=== PATIENT | male | born 1955 | race Caucasian/White ===

== ENCOUNTER → 2016-08-09 | Outpatient (CLI) | payer OTHER ==
--- NOTE | 2016-08-09 13:20 | KCIC ---
PROCEDURE MRI lumbar spine without contrast HISTORY Low back pain, right leg numbness in recent months TECHNIQUE Multiplanar, multi sequential non contrast MR imaging was performed of the lumbar spine. COMPARISON None FINDINGS Lumbar vertebral body stature and AP alignment are adequate. There is nonspecific edema of the posterior subcutaneous fat of the lower back. There is mild to moderate degenerative disc disease at L4-5 and L3-4, to a somewhat lesser degree at L2-3 and L1-2. Trace posterior L3-4 endplate edema is likely reactive/degenerative in etiology. There is mild mid lumbar levoscoliosis. There are hemangiomas of L2, L1, T12 and tiny focus of L5. L1-L2: There is negligible disc osteophyte complex and bulge. Spinal canal and neural foramina are adequate. L2-3: There is mild facet hypertrophic change greater on the right. There is minimal disc osteophyte complex and bulge, greatest in the far right lateral recess. There is mild narrowing of the far right lateral recess. There is minimal right and very minimal left neural foramina compromise. L3-4: There is prominence of posterior epidural fat. There is mild buckling of the ligamentum flavum and facet hypertrophic change. There is shallow disc osteophyte complex and bulge greater in the right lateral recess. Spinal canal is overall adequate. There is mild narrowing of the right neural foramen, left neural foramen adequate. L4-5: There is prominence of posterior epidural fat. There is mild facet hypertrophic change and buckling of the ligamentum flavum. There is minimal disc osteophyte complex and bulge, also shallow protrusion with associated annular tear eccentric to the far right lateral recess. There is overall mild narrowing of the far right lateral recess, apparently light contact of the descending right L5 nerve root. There is other mild attenuation of the thecal sac from posterior epidural lipomatosis. Neural foramina are adequate. L5-S1: Spinal canal is adequate. There is moderate left and mild right facet hypertrophic change. There is mild to moderate narrowing of the left neural foramen, right neural foramen adequate. IMPRESSION 1. There is mild right lateral recess stenosis as described at L2-3 and L4-5, shallow protrusion in the right lateral recess at L4-5 apparently contacting descending right L5 nerve root. 2. There is mild to moderate degenerative disc disease L3-4 and L4-5, to lesser degree at L1-L2 and L2-3. 3. There is mild lumbar levoscoliosis. 4. There is mild to moderate narrowing of the left L5-S1 neural foramen, other minimal narrowing as stated. Electronically signed by: Bobby Mariee MD (Aug 09, 2016 13:18:23)
== END | disposition home or self-care (01) ==
LOC: KCIC MRI 11:31
PROVIDERS: ATTEND Internal Medicine
DX: M51.36 Other intervertebral disc degeneration, lumbar region (principal); R20.0 Anesthesia of skin; M48.07 Spinal stenosis, lumbosacral region
CPT/HCPCS: 72148

== ENCOUNTER 2021-05-16 17:00 | Inpatient (IN) | payer OTHER, MEDICAID ==
[~2021-05-16] VITALS: Ht 193 cm; Wt 111.8 kg
[2021-05-16 18:10] LABS: BASO % 0 % (0-3); EOS % 1 % (0-3); HEMATOCRIT 39.4 % (39.0-53.0); HEMOGLOBIN 12.8 g/dL (13.0-17.5); LYMPH # 1.4 x10^3/uL (1.0-4.8); LYMPH % 21 % (24-48); MEAN CORPUSCULAR HEMOGLOBIN 32 pg (25-35); MEAN CORPUSCULAR HGB CONC 32 g/dL (31-37); MEAN CORPUSCULAR VOLUME 97 fL (79-100); MONO # 0.8 x10^3/uL (0.0-1.1); MONO % 12 % (0-9); NEUT # 4.4 x10^3/uL (1.8-7.7); NEUT % 66 % (31-73); PLATELET COUNT 139 x10^3/uL (140-400); RED BLOOD COUNT 4.05 x10^6/uL (4.30-5.70); RED CELL DISTRIBUTION WIDTH 14.5 % (11.5-14.5); WHITE BLOOD COUNT 6.6 x10^3/uL (4.0-11.0)
[2021-05-16 18:19] LABS: PROTHROMBIN TIME PATIENT 19.1 SEC (11.7-14.0)
[2021-05-16 18:21] LABS: CALCIUM 8.8 mg/dL (8.5-10.1); CREATININE 0.7 mg/dL (0.7-1.3); GFR 112.8; POTASSIUM 4.4 mmol/L (3.5-5.1)
[2021-05-16 18:27] LABS: ALBUMIN 3.4 g/dL (3.4-5.0); ALBUMIN/GLOBULIN RATIO 0.8 (1.0-1.7); TOTAL BILIRUBIN 1.3 mg/dL (0.2-1.0); TOTAL PROTEIN 7.9 g/dL (6.4-8.2)
[2021-05-16 18:38] LABS: CREATINE KINASE 35 U/L (39-308)
--- NOTE | 2021-05-16 19:08 | RAD ---
AP chest. HISTORY: Short of breath AP view was taken of the chest. Heart is enlarged. There is no pleural effusion. There is mild vascul ar congestion. There are no confluent infiltrates. IMPRESSION: 1. Mild cardiac enlargement with vascular congestion. 2. No confluent infiltrates. Electronically signed by: Alexander Mckeon MD (05/16/2021 7:05 PM) [facility]
[2021-05-16] MEDS ORDERED: DIGOXIN IV 500 MCG/2 ML AMPUL. ONE (20:21)
[2021-05-16] MEDS ORDERED: AMIODARONE 450 MG in IV DEXTROSE 5% 250 ML IV ONE (20:45)
[2021-05-16] MEDS ORDERED: AMIODARONE 150 MG/3 ML VIAL IVP ONE (20:45)
[2021-05-16] MEDS ORDERED: DIGOXIN IV 500 MCG/2 ML AMPUL. IV ONE (20:45)
--- NOTE | 2021-05-16 21:13 | PHYS DOC ---
Past Medical History Past Surgical History: Other Additional Past Surgical Histo: RIGHT ELBOW, VERACOSE VEIN REMOVAL General Adult EDM: Chief Complaint: SHORTNESS OF BREATH HPI: HPI: Patient is a 65-year-old male presents to the emergency department with chief complaint of rapid heart rate for the past 4 days with increasing shortness of breath. [facility] diagnosis of [facility], started on Eliquis, reports he had elevated heart enzymes and had to go to the [facility], states his heart cath was clear. Patient denies chest pains, denies chest congestion or nasal congestion, denies recent fever or chills. Patient reports he is supposed to wear a life vest related to a 20 to 25% LEF, patient reports he does not like wearing it and usually sets it next to himself. Patient reports he was a cigarette smoker, long time alcoholic that quit 3 weeks ago. Denies illicit drug use. Patient denies other physical complaints or physical concerns. Review of Systems: Review of Systems: 14 body systems of review of systems have been reviewed. See HPI for pertinent positives and negative responses, otherwise all other systems are negative, nonpertinent or noncontributory. Constitutional: Negative except as outlined in HPI above. Skin: Negative except as outlined in HPI above. Eyes: Negative except as outlined in HPI above. HENT: Negative except as outlined in HPI above. Respiratory: Negative except as outlined in HPI above. Cardiovascular: Negative except as outlined in HPI above. GI: Negative except as outlined in HPI above. : Negative except as outlined in HPI above. Musculoskeletal: Negative except as outlined in HPI above. Integument: Negative except as outlined in HPI above. Neurologic: Negative except as outlined in HPI above. Endocrine: Negative except as outlined in HPI above. Lymphatic: Negative except as outlined in HPI above. Psychiatric: Negative except as outlined in HPI above. Heart Score: C/O Chest Pain: No Risk Factors: Risk Factors: DM, Current or recent (<one month) smoker, HTN, HLP, family history of CAD, obesity. Risk Scores: Score 0 - 3: 2.5% MACE over next 6 weeks - Discharge Home Score 4 - 6: 20.3% MACE over next 6 weeks - Admit for Clinical Observation Score 7 - 10: 72.7% MACE over next 6 weeks - Early Invasive Strategies Current Medications: Current Medications Medications (Trade) Dose Ordered Sig/Lisa Start Time Stop Time Status Last Admin Dose Admin Amiodarone HCl (Cordarone) 75 mg 1X ONCE 05/16/21 20:45 05/16/21 20:46 Amiodarone HCl 450 mg/Dextrose 259 ml @ 0 mls/hr 1X ONCE 05/16/21 20:45 05/16/21 20:46 UNV Digoxin (Lanoxin) 250 mcg 1X ONCE 05/16/21 20:45 05/16/21 20:47 DC Diltiazem HCl (Cardizem Iv Push) 20 mg 1X ONCE 05/16/21 18:00 05/16/21 18:01 DC 05/16/21 18:19 20 MG Diltiazem HCl 125 mg/Sodium Chloride 125 ml @ 5 mls/hr 1X ONCE 05/16/21 18:00 05/17/21 18:59 05/16/21 18:10 5 MLS/HR Allergies: Allergies: Allergies Coded Allergies Type Severity Reaction Last Updated Verified No Known Drug Allergies 05/16/21 No Physical Exam: PE: Constitutional: Well developed, well nourished, no acute distress, non-toxic appearance. 65-year-old man in no respiratory distress, no abnormal audible lung sounds appreciated. HENT: Normocephalic, atraumatic. Oropharynx moist, pink, no deep tissue infectious process appreciated. Eyes: Conjunctiva normal, no discharge. Neck: Normal range of motion, no stridor. Cardiovascular: No cyanosis appreciated, distal cap refill less than 2 seconds. Heart rate tachycardic and irregular. Lungs & Thorax: Patient is in no respiratory distress, no audible adventitious lung sounds appreciated. Lung sounds clear to auscultation all lung xie. Abdomen: Nontender, no abnormalities noted. Skin: Warm, dry, no erythema, no rash. Back: No tenderness, no deformities. Extremities: No tenderness, no cyanosis, no clubbing, ROM intact, bilateral lower extremity 1+ pitting ankle and foot edema. 2+ pedal pulses bilaterally. Distal cap refill less than 2 seconds. No pain to palpation of lower extremities. Neurologic: Alert and oriented X 3, normal motor function, normal sensory function, no focal deficits noted. Psychologic: Affect normal, judgement normal, mood normal. Current Patient Data: Labs: Laboratory Tests Test 05/16/21 17:50 White Blood Count 6.6 x10^3/uL Red Blood Count 4.05 x10^6/uL Hemoglobin 12.8 g/dL Hematocrit 39.4 % Mean Corpuscular Volume 97 fL Mean Corpuscular Hemoglobin 32 pg Mean Corpuscular Hemoglobin Concent 32 g/dL Red Cell Distribution Width 14.5 % Platelet Count 139 x10^3/uL Neutrophils (%) (Auto) 66 % Lymphocytes (%) (Auto) 21 % Monocytes (%) (Auto) 12 % Eosinophils (%) (Auto) 1 % Basophils (%) (Auto) 0 % Neutrophils # (Auto) 4.4 x10^3/uL Lymphocytes # (Auto) 1.4 x10^3/uL Monocytes # (Auto) 0.8 x10^3/uL Eosinophils # (Auto) 0.0 x10^3/uL Basophils # (Auto) 0.0 x10^3/uL Prothrombin Time 19.1 SEC Prothromb Time International Ratio 1.6 Sodium Level 133 mmol/L Potassium Level 4.4 mmol/L Chloride Level 98 mmol/L Carbon Dioxide Level 25 mmol/L Anion Gap 10 Blood Urea Nitrogen 10 mg/dL Creatinine 0.7 mg/dL Estimated GFR (Cockcroft-Gault) 112.8 BUN/Creatinine Ratio 14 Glucose Level 131 mg/dL Calcium Level 8.8 mg/dL Total Bilirubin 1.3 mg/dL Aspartate Amino Transf (AST/SGOT) 19 U/L Alanine Aminotransferase (ALT/SGPT) 11 U/L Alkaline Phosphatase 96 U/L Creatine Kinase 35 U/L Creatine Kinase MB (Mass) 0.7 ng/mL Creatine Kinase MB Relative Index % Troponin I High Sensitivity 123 ng/L XE-Oan-W-Type Natriuretic Peptide 5455 pg/mL Total Protein 7.9 g/dL Albumin 3.4 g/dL Albumin/Globulin Ratio 0.8 Current Medications Medications (Trade) Dose Ordered Sig/Lisa Route PRN Reason Start Time Stop Time Status Last Admin Dose Admin Diltiazem HCl (Cardizem Iv Push) 20 mg 1X ONCE IVP 05/16/21 18:00 05/16/21 18:01 DC 05/16/21 18:19 20 MG Diltiazem HCl 125 mg/Sodium Chloride 125 ml @ 5 mls/hr 1X ONCE IV 05/16/21 18:00 05/17/21 18:59 05/16/21 18:10 5 MLS/HR Digoxin (Lanoxin) 500 mcg STK-MED ONCE .ROUTE 05/16/21 20:21 05/16/21 20:21 DC Digoxin (Lanoxin) 250 mcg 1X ONCE IV 05/16/21 20:45 05/16/21 20:47 DC Amiodarone HCl (Cordarone) 75 mg 1X ONCE IVP 05/16/21 20:45 05/16/21 20:46 Amiodarone HCl 450 mg/Dextrose 259 ml @ 0 mls/hr 1X ONCE IV 05/16/21 20:45 05/16/21 20:46 UNV Laboratory Tests Test 05/16/21 17:50 White Blood Count 6.6 x10^3/uL (4.0-11.0) Red Blood Count 4.05 x10^6/uL (4.30-5.70) L Hemoglobin 12.8 g/dL (13.0-17.5) L Hematocrit 39.4 % (39.0-53.0) Mean Corpuscular Volume 97 fL (79-100) Mean Corpuscular Hemoglobin 32 pg (25-35) Mean Corpuscular Hemoglobin Concent 32 g/dL (31-37) Red Cell Distribution Width 14.5 % (11.5-14.5) Platelet Count 139 x10^3/uL (140-400) L Neutrophils (%) (Auto) 66 % (31-73) Lymphocytes (%) (Auto) 21 % (24-48) L Monocytes (%) (Auto) 12 % (0-9) H Eosinophils (%) (Auto) 1 % (0-3) Basophils (%) (Auto) 0 % (0-3) Neutrophils # (Auto) 4.4 x10^3/uL (1.8-7.7) Lymphocytes # (Auto) 1.4 x10^3/uL (1.0-4.8) Monocytes # (Auto) 0.8 x10^3/uL (0.0-1.1) Eosinophils # (Auto) 0.0 x10^3/uL (0.0-0.7) Basophils # (Auto) 0.0 x10^3/uL (0.0-0.2) Prothrombin Time 19.1 SEC (11.7-14.0) H Prothrombin Time INR 1.6 (0.8-1.1) H Sodium Level 133 mmol/L (136-145) L Potassium Level 4.4 mmol/L (3.5-5.1) Chloride Level 98 mmol/L (98-107) Carbon Dioxide Level 25 mmol/L (21-32) Anion Gap 10 (6-14) Blood Urea Nitrogen 10 mg/dL (8-26) Creatinine 0.7 mg/dL (0.7-1.3) Estimated GFR (Cockcroft-Gault) 112.8 BUN/Creatinine Ratio 14 (6-20) Glucose Level 131 mg/dL (70-99) H Calcium Level 8.8 mg/dL (8.5-10.1) Total Bilirubin 1.3 mg/dL (0.2-1.0) H Aspartate Amino Transferase (AST) 19 U/L (15-37) Alanine Aminotransferase (ALT) 11 U/L (16-63) L Alkaline Phosphatase 96 U/L (46-116) Creatine Kinase 35 U/L (39-308) L Creatine Kinase MB (Mass) 0.7 ng/mL (0.0-3.6) Creatine Kinase MB Relative Index % (0-4) Troponin I High Sensitivity 123 ng/L (4-75) H EG-Zuk-I-Type Natriuretic Peptide 5455 pg/mL (0-124) H Total Protein 7.9 g/dL (6.4-8.2) Albumin 3.4 g/dL (3.4-5.0) Albumin/Globulin Ratio 0.8 (1.0-1.7) L Laboratory Tests 05/16/21 17:50 Laboratory Tests 05/16/21 17:50 Vital Signs: Vital Signs Date Time Temp Pulse Resp B/P (MAP) Pulse Ox O2 Delivery O2 Flow Rate FiO2 05/16/21 20:31 107 18 103/69 (80) 96 Nasal Cannula 3.0 05/16/21 17:14 97.7 97.7 EKG: EKG: EKG performed at 1725 by ED nursing staff shows a atrial fibrillation with rapid ventricular response heart rate 142 bpm, QTc interval 0.506, no acute STEMI, no ACS, no acute ischemia appreciated, EKG interpreted by ED attending physician Dr. Frankie. Repeat serial EKG performed at 1946 by ED nursing staff shows atrial fibrillation, heart rate 104 bpm, QTc interval 0.5 awake, no acute STEMI, no ACS, no acute ischemia appreciated, EKG interpreted by ED attending physician Dr. Curry. Radiology/Procedures: Radiology/Procedures: STATUS: REG ER ORD. PHYSICIAN: TAISHA MONTOYA APRN REASON: Short of breath PROCEDURE: CHEST AP ONLY AP chest. HISTORY: Short of breath AP view was taken of the chest. Heart is enlarged. There is no pleural effusion. There is mild vascular congestion. There are no confluent infiltrates. IMPRESSION: 1. Mild cardiac enlargement with vascular congestion. 2. No confluent infiltrates. Electronically signed by: Alexander Mckeon MD (05/16/2021 7:05 PM) [facility] Course & Med Decision Making: Course & Med Decision Making Pertinent Labs and Imaging studies reviewed. (See chart for details) Food 65-year-old male, vital signs reviewed, presents emerged from concerning shortness of breath for the past 4 days. Patient has recent history of pulmonary emboli, is currently being treated with Eliquis. Patient was found to be in A. fib RVR during triage, patient denies a history of atrial fibrillation, will start on diltiazem bolus and drip. Discussed with patient recommended admission related to new onset of atrial fibrillation, patient is amendable to ED admission planning. Patient CBC unremarkable,Eliquis dosing PT/INR was ordered, chemistry shows troponin I high-sensitivity at 123, serial troponins were ordered, NT proBNP equals 5455, this is consistent with patient's history of congestive heart failure and reported ejection fraction of 20 to 25%. It was noted on chronic reactive monitor patient had several 10 beat runs of V. tach, called and discussed patient case and ED work-up with mobile marketing specialist Dr. Mitchell who recommended giving 0.25 mg digoxin related to sustained heart rate above 100 and lieu of Cardizem drip, also recommended 75 mg amiodarone bolus with amiodarone drip, admit to sixth floor. Discussed with patient will be admitted under hospital inpatient management physician Dr. Muñiz with cardiology specialty consulting, patient gave verbal understanding of and is aware of admission. Called and discussed patient case and ED work-up with inpatient management physician Dr. Muñiz, reviewed Dr. Mitchell recommendations, Dr. Muñiz agreed patient's case warrants admission to the sixth floor CVC unit. Patient awaiting bed assignment from linen room houseperson at this time. Joaquin Disclaimer: Joaquin Disclaimer: This electronic medical record was generated, in whole or in part, using a voice recognition dictation system. Departure Departure Impression: Primary Impression: Atrial fibrillation with RVR Additional Impression: Congestive heart failure Qualified Codes: I50.9 - Heart failure, unspecified Disposition: 09 ADMITTED INPATIENT Admitting Physician: JAZMYNE (Admit to Dr. Muñiz, cardiology consulted.) Condition: GUARDED Referrals: UNKNOWN PCP NAME (PCP) TAISHA MONTOYA UM RN May 16, 2021 21:13
--- NOTE | 2021-05-16 23:36 | EKG ---
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
[2021-05-16] MEDS ORDERED: CLONAZEPAM1 MG PO (23:57)
[2021-05-16] MEDS ORDERED: APIX5TAB PO (23:57)
[2021-05-16] MEDS ORDERED: SPIR25TA5 PO (23:57)
[2021-05-16] MEDS ORDERED: BISO5TAB8 PO (23:57)
[2021-05-16] MEDS ORDERED: THIA100T57 PO (23:57)
[2021-05-16] MEDS ORDERED: CHOL10004 PO (23:57)
[2021-05-17] VITALS (11 sets, daily range): BP systolic 95–116; BP diastolic 60–93
[2021-05-17] MEDS ORDERED: AMIODARONE 450 MG in IV DEXTROSE 5% 250 ML IV PRN
--- NOTE | 2021-05-17 00:19 | EKG ---
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
[2021-05-17] MEDS ORDERED: FOLI0.8T5 PO (00:28)
[2021-05-17 01:11] LABS: BILIRUBIN,URINE NEGATIVE (NEG); CLARITY,URINE CLEAR; COLOR,URINE YELLOW; NITRITE,URINE NEGATIVE (NEG); PH,URINE 5.5 (<5.0-8.0); PROTEIN,URINE 30 mg/dL (NEG-TRACE)
[2021-05-17 01:19] LABS: BACTERIA,URINE 0 /HPF (0-FEW); HYALINE CASTS, URINE FEW /HPF; RBC,URINE RARE /HPF (0-2); WBC,URINE RARE /HPF (0-4)
[2021-05-17] MEDS: clonazePAM 0.5 MG TABLET PO SCH ×3 (01:25→20:13)
[2021-05-17] MEDS ORDERED: ANTI-COAG MONITOR BY PHARMACY. MC PRN (01:30)
[2021-05-17 06:52] LABS: BASO % 0 % (0-3); EOS # 0.1 x10^3/uL (0.0-0.7); EOS % 1 % (0-3); HEMATOCRIT 40.1 % (39.0-53.0); HEMOGLOBIN 12.8 g/dL (13.0-17.5); LYMPH % 27 % (24-48); MEAN CORPUSCULAR HEMOGLOBIN 31 pg (25-35); MEAN CORPUSCULAR HGB CONC 32 g/dL (31-37); MEAN CORPUSCULAR VOLUME 98 fL (79-100); MONO # 0.9 x10^3/uL (0.0-1.1); MONO % 13 % (0-9); NEUT # 4.2 x10^3/uL (1.8-7.7); NEUT % 59 % (31-73); PLATELET COUNT 134 x10^3/uL (140-400); RED CELL DISTRIBUTION WIDTH 14.7 % (11.5-14.5); WHITE BLOOD COUNT 7.1 x10^3/uL (4.0-11.0)
[2021-05-17 07:13] LABS: ALBUMIN 3.4 g/dL (3.4-5.0); ALBUMIN/GLOBULIN RATIO 0.8 (1.0-1.7); CALCIUM 8.7 mg/dL (8.5-10.1); CHOLESTEROL/HDL RATIO 3.1; CREATININE 0.8 mg/dL (0.7-1.3); GFR 96.7; POTASSIUM 4.1 mmol/L (3.5-5.1); TOTAL BILIRUBIN 1.3 mg/dL (0.2-1.0); TOTAL PROTEIN 7.9 g/dL (6.4-8.2)
[2021-05-17] MEDS: SPIRONOLACTONE 25 MG TABLET PO SCH (08:51)
[2021-05-17] MEDS: APIXABAN 5 MG TABLET. PO SCH ×3 (08:51→20:13)
[2021-05-17] MEDS: FOLIC ACID 1 MG TABLET. PO SCH (08:51)
[2021-05-17] MEDS: CHOLECALCIFEROL (VITAMIN D3) 1,000 UNIT TABLET PO SCH (08:51)
[2021-05-17] MEDS: THIAMINE 100 MG TABLET. PO SCH (08:51)
--- NOTE | 2021-05-17 08:57 | NUR ---
PATIENT REFUSES APIXABAN. HE STATES IT MAKES HIS HEART RACE. EDUCATION PROVIDED TO PT REGARDING USE AND PURPOSE OF MEDICATION, THAT WE HAVE HIM ON CONTINUOUS HEART MONITORING, BUT HE CONTINUES TO DECLINE.
[2021-05-17] MEDS ORDERED: ATENOLOL 25 MG TABLET. PO SCH (09:00)
--- NOTE | 2021-05-17 12:25 | NUR ---
SS following for discharge planning. SS reviewed pt chart and discussed with pt RN. Pt is from home with spouse and is currently requiring oxygen at three liters nasal canula. Cardiology consulted. Pt on Cardizem and Amiodarone drip. SS will continue to follow for discharge planning.
--- NOTE | 2021-05-17 12:26 | PDOC2 ---
ASHLEIGH PRINGLE OUTSIDE PHYSICAL DAMAGE APPRAISER 05/17/21 1225: CARDIAC CONSULT DATE OF CONSULT Date of Consult DATE: 05/17/21 TIME: 12:23 REASON FOR CONSULT Reason for Consult: New onset AFIB with RVR REFERRING PHYSICIAN Referring Physician: Dr. Worrell SOURCE Source: Chart review, Patient HISTORY OF PRESENT ILLNESS HISTORY OF PRESENT ILLNESS This is 65 yo male who presented secondary to shortness of breath and palpitations. Patient recently treated at [facility]. Was noted with significant cardiomyopathy. Underwent cardiac catheterization, which patient reports as "clean". Was noted with LLE DVT and PE. Eliquis therapy was initiated. History of heavy Whiskey use. Family reports that he experience withdrawal during hospitalization. Was discharge home with LifeVest. Patient reports that is was a pain and he has not been wearing. Family reports that he was still short of air upon [place] from [place]. No known prior h/o AFIB. Was noted in AFIB with RVR, which prompted this consult. Was started on Cardizem gtt. Also noted with 10- beat run of NSVT and amiodarone was initiate. PAST MEDICAL HISTORY Cardiovascular: CHF, HTN Heme/Onc: Other (PE, DVT) Musculoskeletal: Osteoarthritis PAST SURGICAL HISTORY Past Surgical History: No pertinent history FAMILY HISTORY Family History: Hypertension SOCIAL HISTORY Smoke: No ALCOHOL: heavy Drugs: None Lives: with Family CURRENT MEDICATIONS CURRENT MEDICATIONS Current Medications Medications (Trade) Dose Ordered Sig/Lisa Route PRN Reason Start Time Stop Time Status Last Admin Dose Admin Diltiazem HCl (Cardizem Iv Push) 20 mg 1X ONCE IVP 05/16/21 18:00 05/16/21 18:01 DC 05/16/21 18:19 Diltiazem HCl 125 mg/Sodium Chloride 125 ml @ 5 mls/hr 1X ONCE IV 05/16/21 18:00 05/17/21 18:59 05/16/21 18:10 Digoxin (Lanoxin) 250 mcg 1X ONCE IV 05/16/21 20:45 05/16/21 20:47 DC 05/16/21 20:56 Amiodarone HCl (Cordarone) 75 mg 1X ONCE IVP 05/16/21 20:45 05/16/21 20:49 DC 05/16/21 22:12 Amiodarone HCl 450 mg/Dextrose 259 ml @ 0 mls/hr 1X ONCE IV 05/16/21 20:45 05/16/21 20:49 DC 05/16/21 22:16 Amiodarone HCl 450 mg/Dextrose 259 ml @ 17 mls/hr CONT PRN IV SEE I/O RECORD 05/17/21 00:00 05/17/21 23:49 05/17/21 09:46 Diltiazem HCl 125 mg/Sodium Chloride 125 ml @ 5 mls/hr CONT PRN IV PER PROTOCOL 05/17/21 00:00 05/17/21 09:44 Vitamin D (Vitamin D3) 1,000 unit DAILY PO 05/17/21 09:00 05/17/21 08:51 Spironolactone (Aldactone) 25 mg DAILY PO 05/17/21 09:00 05/17/21 08:51 Atenolol (Tenormin) 25 mg DAILY PO 05/17/21 09:00 05/17/21 08:52 Clonazepam (KlonoPIN) 1 mg BID PO 05/17/21 01:30 05/17/21 08:51 Folic Acid (Folic Acid) 1 mg DAILY PO 05/17/21 09:00 05/17/21 08:51 Thiamine Mononitrate (Vitamin B-1) 100 mg DAILY PO 05/17/21 09:00 05/17/21 08:51 Info (Anti-Coagulation Monitoring By Pharmacy) 1 each PRN DAILY PRN MC PER PROTOCOL 05/17/21 01:30 05/17/21 02:25 ALLERGIES ALLERGIES: Coded Allergies: No Known Drug Allergies (Unverified , 05/16/21) ROS Review of System 14 point ROS conducted with pertinent positives noted above in HPI PHYSICAL EXAM General: Alert, Oriented X3, Cooperative, mild distress HEENT: Atraumatic Lungs: Other (diminished ) Heart: Other (IRRR; tele AFIB. Rate 85) Abdomen: Soft Extremities: Other (2+ bilateral LE edema ) Neuro: Normal speech, Sensation intact Psych/Mental Status: Mood NL MUSCULOSKELETAL: Osteoarthritic changes both hands VITALS/I&O VITALS/I&O: Vital Signs Date Time Temp Pulse Resp B/P (MAP) Pulse Ox O2 Delivery O2 Flow Rate FiO2 05/17/21 10:13 98.1 111 24 109/91 (97) 91 Nasal Cannula 3.0 98.1 l I & O 05/16/21 05/16/21 05/17/21 15:00 23:00 07:00 Intake Total 230 ml Output Total 325 ml Balance -95 ml LABS Lab: Laboratory Tests Test 05/16/21 17:50 05/16/21 23:30 05/17/21 01:06 05/17/21 04:35 White Blood Count 6.6 x10^3/uL (4.0-11.0) 7.1 x10^3/uL (4.0-11.0) Red Blood Count 4.05 x10^6/uL (4.30-5.70) L 4.10 x10^6/uL (4.30-5.70) L Hemoglobin 12.8 g/dL (13.0-17.5) L 12.8 g/dL (13.0-17.5) L Hematocrit 39.4 % (39.0-53.0) 40.1 % (39.0-53.0) Mean Corpuscular Volume 97 fL (79-100) 98 fL (79-100) Mean Corpuscular Hemoglobin 32 pg (25-35) 31 pg (25-35) Mean Corpuscular Hemoglobin Concent 32 g/dL (31-37) 32 g/dL (31-37) Red Cell Distribution Width 14.5 % (11.5-14.5) 14.7 % (11.5-14.5) H Platelet Count 139 x10^3/uL (140-400) L 134 x10^3/uL (140-400) L Neutrophils (%) (Auto) 66 % (31-73) 59 % (31-73) Lymphocytes (%) (Auto) 21 % (24-48) L 27 % (24-48) Monocytes (%) (Auto) 12 % (0-9) H 13 % (0-9) H Eosinophils (%) (Auto) 1 % (0-3) 1 % (0-3) Basophils (%) (Auto) 0 % (0-3) 0 % (0-3) Neutrophils # (Auto) 4.4 x10^3/uL (1.8-7.7) 4.2 x10^3/uL (1.8-7.7) Lymphocytes # (Auto) 1.4 x10^3/uL (1.0-4.8) 2.0 x10^3/uL (1.0-4.8) Monocytes # (Auto) 0.8 x10^3/uL (0.0-1.1) 0.9 x10^3/uL (0.0-1.1) Eosinophils # (Auto) 0.0 x10^3/uL (0.0-0.7) 0.1 x10^3/uL (0.0-0.7) Basophils # (Auto) 0.0 x10^3/uL (0.0-0.2) 0.0 x10^3/uL (0.0-0.2) Prothrombin Time 19.1 SEC (11.7-14.0) H Prothrombin Time INR 1.6 (0.8-1.1) H Sodium Level 133 mmol/L (136-145) L 131 mmol/L (136-145) L Potassium Level 4.4 mmol/L (3.5-5.1) 4.1 mmol/L (3.5-5.1) Chloride Level 98 mmol/L (98-107) 96 mmol/L (98-107) L Carbon Dioxide Level 25 mmol/L (21-32) 22 mmol/L (21-32) Anion Gap 10 (6-14) 13 (6-14) Blood Urea Nitrogen 10 mg/dL (8-26) 12 mg/dL (8-26) Creatinine 0.7 mg/dL (0.7-1.3) 0.8 mg/dL (0.7-1.3) Estimated GFR (Cockcroft-Gault) 112.8 96.7 BUN/Creatinine Ratio 14 (6-20) 15 (6-20) Glucose Level 131 mg/dL (70-99) H 125 mg/dL (70-99) H Calcium Level 8.8 mg/dL (8.5-10.1) 8.7 mg/dL (8.5-10.1) Total Bilirubin 1.3 mg/dL (0.2-1.0) H 1.3 mg/dL (0.2-1.0) H Aspartate Amino Transferase (AST) 19 U/L (15-37) 20 U/L (15-37) Alanine Aminotransferase (ALT) 11 U/L (16-63) L 21 U/L (16-63) Alkaline Phosphatase 96 U/L (46-116) 98 U/L (46-116) Creatine Kinase 35 U/L (39-308) L Creatine Kinase MB (Mass) 0.7 ng/mL (0.0-3.6) Creatine Kinase MB Relative Index % (0-4) Troponin I High Sensitivity 123 ng/L (4-75) H 124 ng/L (4-75) H 118 ng/L (4-75) H LV-[id number]-Type Natriuretic Peptide 5455 pg/mL (0-124) H Total Protein 7.9 g/dL (6.4-8.2) 7.9 g/dL (6.4-8.2) Albumin 3.4 g/dL (3.4-5.0) 3.4 g/dL (3.4-5.0) Albumin/Globulin Ratio 0.8 (1.0-1.7) L 0.8 (1.0-1.7) L Urine Collection Type Unknown Urine Color Yellow Urine Clarity Clear Urine pH 5.5 (<5.0-8.0) Urine Specific Billingsley 1.010 (1.000-1.030) Urine Protein 30 mg/dL (NEG-TRACE) Urine Glucose (UA) Negative mg/dL (NEG) Urine Ketones (Stick) Negative mg/dL (NEG) Urine Blood Negative (NEG) Urine Nitrite Negative (NEG) Urine Bilirubin Negative (NEG) Urine Urobilinogen Dipstick 1.0 mg/dL (0.2 mg/dL) Urine Leukocyte Esterase Negative (NEG) Urine RBC Rare /HPF (0-2) Urine WBC Rare /HPF (0-4) Urine Squamous Epithelial Cells Few /LPF Urine Bacteria 0 /HPF (0-FEW) Urine Hyaline Casts Few /HPF Urine Mucus Mod /LPF Triglycerides Level 63 mg/dL (0-150) Cholesterol Level 84 mg/dL (0-200) LDL Cholesterol, Calculated 44 mg/dL (0-100) VLDL Cholesterol, Calculated 13 mg/dL (0-40) Non-HDL Cholesterol Calculated 57 mg/dL (0-129) HDL Cholesterol 27 mg/dL (40-60) L Cholesterol/HDL Ratio 3.1 Laboratory Tests 05/16/21 17:50 05/17/21 04:35 Laboratory Tests 05/16/21 17:50 05/17/21 04:35 ASSESSMENT/PLAN ASSESSMENT/PLAN 1. Acute respiratory failure secondary to CHF 2. Acute on chronic systolic CHF 3. NICM; LVEF reportedly 20-25%. Recent cath reportedly without significant obstructive disease. Follows with [facility]. LifeVest arranged, but patient has been noncompliant 4. New onset AFIB; on Cardizem and Amiodarone gtt 5. Hypertension; controlled 6. PE/DVT; recent diagnosis. On Eliquis 7. H/o heavy EOTH use; experienced withdrawal during recent hospitalization at [facility] 8. Thrombocytopenia, coagulopathy; INR 1.6 Recommendations Diuresis with monitoring of renal function Discontinue Cardizem gtt given severe CMP Convert atenolol to Toprol for rate control Continue amiodarone gtt. transition to oral when loading complete Continue Eliquis for stroke prophylaxis, treatment of DVT/PE Obtain records from [place] Further pending review of records Supportive care TALYA CHASE MD 05/17/21 1645: CARDIAC CONSULT ASSESSMENT/PLAN ASSESSMENT/PLAN Patient seen and examined. Agree with EMERGENCY ROOM TECHNICIAN's assessment and plan. Atrial fibrillation, newly diagnosed, heart rate better controlled since admission Agree with changing Cardizem to beta blockers due to his history of cardiomyopathy Continue amiodarone and Eliquis and consider outpatient cardioversion Continue diuresis for acute on chronic systolic heart failure LVEF 20 to 25% with recent cardiac catheterization apparently without any significant stenosis Thank you. ASHLEIGH PRINGLE APRN May 17, 2021 12:25 TALYA CHASE MD May 17, 2021 16:45
[2021-05-17] MEDS ORDERED: METOPROLOL SUCC 24HR ER 25 MG TAB.ER.24H. PO ONE (12:30)
[2021-05-17] MEDS ORDERED: POTASSIUM CHLORIDE 20 MEQ TABLET.ER. PO ONE (13:00)
[2021-05-17] MEDS ORDERED: FUROSEMIDE 100 MG/10 ML VIAL. IVP ONE (13:00)
--- NOTE | 2021-05-17 13:53 | HP ---
DATE OF SERVICE: 05/17/2021 ADMIT DATE: 05/16/2021 CHIEF COMPLAINT: Shortness of breath. HISTORY OF PRESENT ILLNESS: The patient is a pleasant 65-year-old male who presented to the ER with shortness of breath. He has also had a rapid heart rate that has been occurring for 4 days. While in the ER, he is noted to be in AFib with rapid ventricular response. It should be noted that [facility] and was started on anticoagulation with Eliquis. He apparently did have a cardiac cath while there. Apparently, it was clear according to the patient. His ejection fraction was noted to be 25%. Apparently, he was supposed to be wearing a LifeVest, but did not like wearing it, so he did not wear it, sits it next to himself. He used to be a heavy drinker. He states he quit drinking 3 weeks ago. He also quit smoking. I discussed the case with the ER physician. We have admitted the patient. We are consulting Cardiology. PAST MEDICAL HISTORY: Tobacco issues, alcohol issues, right elbow surgery, varicose vein surgery. ALLERGIES: None. FAMILY HISTORY: Hypertension. SOCIAL HISTORY: He quit smoking and drinking, but I think he used to use a lot of alcohol and cigarettes. MEDICATIONS: Reviewed. Please refer to the MRAD. REVIEW OF SYSTEMS: GENERAL: No history of weight change, weakness or fevers. SKIN: No bruising, hair changes or rashes. EYES: No blurred, double or loss of vision. NOSE AND THROAT: No history of nosebleeds, hoarseness or sore throat. HEART: He complains of palpitations. LUNGS: He complains of shortness of breath. GASTROINTESTINAL: Denies changes in appetite, nausea, vomiting, diarrhea or constipation. GENITOURINARY: No history of frequency, urgency, hesitancy or nocturia. NEUROLOGIC: Denies history of numbness, tingling, tremor or weakness. PSYCHIATRIC: No history of panic, anxiety or depression. ENDOCRINE: No history of heat or cold intolerance, polyuria or polydipsia. EXTREMITIES: Denies muscle weakness, joint pain, pain on walking or stiffness. PHYSICAL EXAMINATION: VITALS: Within normal limits and are stable. GENERAL: He appears depressed. HEENT: Normal cephalic atraumatic, external auditory canals are patent. Eyes: Extraocular muscles are intact, pupils are equally round and reactive to light and accommodation. MUSCULOSKELETAL: Well developed, well nourished, good range of motion. ENDOCRINE: No thyromegaly was palpated. LYMPHATICS: No cervical chain or axillary nodes were noted. HEMATOPOIETIC: No bruising. NECK: Supple, no JVD, no thyromegaly was noted. LUNGS: He has bibasilar crackles. HEART: RRR, S1, S2 present. Peripheral pulses intact, no obvious murmurs were noted. ABDOMEN: Soft, nontender. Positive bowel sounds, no organomegaly, normal bowel sounds. EXTREMITIES: He has 1+ edema. NEUROLOGIC: He is weak and depressed. PSYCHIATRIC: He is disheveled, appears depressed. SKIN: No ulcerations or rashes, good skin turgor, no jaundice. VASCULAR: Good capillary refill, neurovascular bundle appears to be intact. LABORATORY DATA: White count is 6, hemoglobin 12, platelets 139. Electrolytes: Sodium 131, potassium 4.1, chloride 96, bicarbonate 22, BUN 12, creatinine 0.8, glucose 125. Troponin 123. BNP 5,455. EKG shows AFib with RVR. Chest x-ray shows cardiomegaly with congestion. ASSESSMENT AND PLAN: Atrial fibrillation with rapid ventricular response and acute on chronic systolic and diastolic heart failure in a middle-aged male with the above noted comorbidities. The patient has been admitted to the cardiac floor. Serial enzymes, serial EKGs, echocardiogram. Consult Cardiology. Home meds. Deep venous thrombosis prophylaxis. Full code. We were using p.r.n. metoprolol p.o. for rate control. Check a lipid panel. JOHN thorne and SCDs. Continue his home anticoagulation. He got a dose of amiodarone in the ER and currently has amiodarone and Cardizem drips hanging, we will continue those. Long-term prognosis is guarded. DEREK/CARMENCITA DR: DEREK/brigitte TID: [id number]
--- NOTE | 2021-05-17 16:51 | NUR ---
METOPROLOL HELD PER RECOMMENDATION OF Obinna PRINGLE, IN LIGHT OF FUROSEMIDE DOSE.
--- NOTE | 2021-05-17 20:00 | NUR ---
Patient states that he is hallucinating-seeing snakes in his room and states the door keeps opening and closing. Questioned patient about drinking again, patient states that he does not drink alcohol and never has. WA completed patient score is 8. notified Dr. Scott. patient face purple in color, O2 sat 98% on 3 L. Patient agitated. [facility] protocol ordered. Will continue to monitor.
--- NOTE | 2021-05-17 23:00 | NUR ---
Patient has audible wheeze and O2 sat is 95% sat patient up in bed. notified Dr. Scott. Orders received for Mag 2GM IV. Patient refused. Patient only has 1 IV at this time with amiodarone running. Patient refused to allow RN to start new IV. Dr. Scott Notified. Will continue to monitor. Addendum: 05/18/21 at 0214 by NIKHIL ABREU RN RN Patient agitated and also stated during this time "its those little oblong pink pills you gave me, i told you they make me fucked up in the head" explained to patient the reason for Eliquis and why it is important. Patient refused teaching stating "this is why i don't take them". Will continue to provide patient with education on Eliquis. Will continue to monitor.
[2021-05-17] MEDS ORDERED: MAGNESIUM SULFATE 2GM 50 ML IV ONE (23:30)
[2021-05-18] MEDS ORDERED: AMIODARONE 450 MG in IV DEXTROSE 5% 250 ML IV PRN (02:00)
[2021-05-18 03:59] VITALS: BP 114/83
[2021-05-18 07:00] VITALS: BP 110/73
[2021-05-18] MEDS: SPIRONOLACTONE 25 MG TABLET PO SCH (08:40)
[2021-05-18] MEDS: CHOLECALCIFEROL (VITAMIN D3) 1,000 UNIT TABLET PO SCH (08:40)
[2021-05-18] MEDS: clonazePAM 0.5 MG TABLET PO SCH ×2 (08:40→19:51)
[2021-05-18] MEDS: FOLIC ACID 1 MG TABLET. PO SCH (08:40)
[2021-05-18] MEDS: THIAMINE 100 MG TABLET. PO SCH (08:40)
[2021-05-18] MEDS: METOPROLOL SUCC 24HR ER 50 MG TAB.ER.24H. PO SCH (08:40)
[2021-05-18] MEDS: APIXABAN 5 MG TABLET. PO SCH ×3 (08:41→19:52)
--- NOTE | 2021-05-18 08:48 | NUR ---
MEDICATION REFUSAL PT DECLINES TO TAKE ELIQUIS, SAYS "IF THE DOCTORS WANT ME TO TAKE IT THEY CAN GIVE IT TO ME." EXPLAINED THAT DOCTORS DONT GIVE PILLS, THEY ORDER THEM AND NURSES ADMINISTER THEM. HE SAID "HOLD ON TO IT, AND IF THEY TELL ME TO, I WILL TAKE IT."
--- NOTE | 2021-05-18 10:50 | PDOC ---
ASHER HIGGINS SUPERVISOR PIPELINE MAINTENANCE 05/18/21 1049: CARDIO Progress Notes Date and Time Date of Service 05/18/2021 Time of Evaluation 1010 Subjective Subjective: No Chest Pain, No shortness of breath, No Palpitations Vitals Vitals Vital Signs Date Time Temp Pulse Resp B/P (MAP) Pulse Ox O2 Delivery O2 Flow Rate FiO2 05/18/21 08:40 74 114/83 05/18/21 07:00 97.4 24 98 Nasal Cannula 3.0 97.4 Weight Weight [ ] Input and Output Intake and Output Intake and Output 05/18/21 07:00 Intake Total 3509 ml Output Total 900 ml Balance 2609 ml Intake Oral 3250 ml IV Total 259 ml Output Urine Total 900 ml # Voids 3 # Bowel Movements 1 Physical Exam HEENT: Neck Supple W Full Motion Chest: Symmetric LUNGS: Other (diminished) Heart: irregularly irregular (AFIB) Abdomen: Soft N/T Extremities: Other (2-3+ bilateral LE pitting edema) Neurology: alert, oriented, follow commands Assessment Assessment 1. Acute respiratory failure secondary to CHF 2. Acute on chronic systolic CHF: improving 3. NICM; LVEF reportedly 20-25%. Recent cath reportedly without significant obstructive disease. Follows with [facility]. LifeVest arranged, but patient has been noncompliant 4. New onset AFIB: rate controlled 5. Hypertension; controlled 6. PE/DVT; recent diagnosis. On Eliquis 7. H/o heavy ETOH use; experienced withdrawal during recent hospitalization at [facility] 8. Thrombocytopenia, coagulopathy; INR 1.6 9. AUD Recommendations Continue lasix therapy Pt has AUD and significantly noncompliant and would not be a good candidate for shelter amiodarone therapy Toprol moving forward for rate control. Adjust dose per rate and BP trend Continue Eliquis for stroke prophylaxis, treatment of DVT/PE [facility] Supportive care Justicifation of Admission Dx: Justifications for Admission: Justification of Admission Dx: Yes TALYA CHASE MD 05/18/21 1335: CARDIO Progress Notes Assessment Assessment Patient seen and examined. Agree with DATA NETWORK ARCHITECT's assessment and plan. Atrial fibrillation, newly diagnosed, heart rate better controlled Continue Eliquis for stroke prophylaxis and consider outpatient cardioversion Continue diuresis for acute on chronic systolic heart failure LVEF 20 to 25% with recent cardiac catheterization apparently without any significant stenosis ASHER HIGGINS APRN May 18, 2021 10:49 TALYA CHASE MD May 18, 2021 13:35
[2021-05-18 11:00] VITALS: BP 109/78
[2021-05-18] MEDS: FUROSEMIDE 40 MG/4 ML VIAL. IVP SCH (12:31)
--- NOTE | 2021-05-18 12:53 | PDOC ---
[facility] PROGRESS NOTE Date of Service DOS: DATE: 05/18/21 TIME: 12:50 Chief Complaint Chief Complaint Atrial fibrillation with rapid ventricular response Acute on chronic systolic and diastolic heart failure History of Present Illness History of Present Illness 05/18 Pt seen and examined Chart reviewed Discussed with RN Vitals/I&O Vitals/I&O: Vital Signs Date Time Temp Pulse Resp B/P (MAP) Pulse Ox O2 Delivery O2 Flow Rate FiO2 05/18/21 08:40 74 114/83 05/18/21 08:20 Nasal Cannula 3.0 05/18/21 07:00 97.4 24 98 97.4 I & O 05/17/21 05/17/21 05/18/21 15:00 23:00 07:00 Intake Total 1400 ml 800 ml 1309 ml Output Total 600 ml 300 ml Balance 800 ml 500 ml 1309 ml Physical Exam General: Alert, Oriented X3, Cooperative (but mildly aggitated), mild distress Heart: Other (IRRR; tele AFIB. Rate 70's) Lungs: Other (diminished) Abdomen: Soft Extremities: Other (2+ bilateral LE edema ) Assessment and Plan Assessmemt and Plan Problems Medical Problems: (1) Atrial fibrillation with RVR Status: Acute (2) Congestive heart failure Status: Acute Atrial fibrillation with rapid ventricular response Acute respiratory failure secondary to... Acute on chronic systolic and diastolic heart failure Thrombocytopenia, coagulopathy H/x recent PE/DVT H/x hypertension H/x AUD with withdrawal symptoms on previous hospitalization at outside facility Plan: Continue Metoprolol for rate control Continue Lasix Continue home Spironolactone Continue IV Amiodarone Continue home Eliquis Cardiology consulted, recommendations appreciated Continue scheduled Clonazepam and PRN Ativan Home meds Deep venous thrombosis prophylaxis JOHN tonye and SCDs. Full code Long-term prognosis is guarded Comment Review of Relevant I have reviewed the following items shayna (where applicable) has been applied. Medications: Current Medications Medications (Trade) Dose Ordered Sig/Lisa Route PRN Reason Start Time Stop Time Status Last Admin Dose Admin Metoprolol Succinate (Toprol Xl) 50 mg DAILY PO 05/18/21 09:00 05/18/21 08:40 Furosemide (Lasix) 60 mg 1X ONCE IVP 05/17/21 13:00 05/17/21 13:01 DC 05/17/21 12:52 Potassium Chloride (Klor-Con) 20 meq 1X ONCE PO 05/17/21 13:00 05/17/21 13:01 DC 05/17/21 12:52 Lorazepam (Ativan Inj) 1 mg PRN Q1HR PRN IV For CIWA 8-14 05/17/21 19:15 05/18/21 07:17 Amiodarone HCl 450 mg/Dextrose 259 ml @ 17 mls/hr CONT PRN IV SEE I/O RECORD 05/18/21 02:00 05/19/21 01:52 05/18/21 02:02 Furosemide (Lasix) 40 mg DAILY IVP 05/18/21 11:00 05/18/21 12:31 Justifications for Admission Other Justification JINNY MENDENHALL III DO May 18, 2021 12:53
--- NOTE | 2021-05-18 13:30 | NUR ---
SS following up with discharge planning. SS reviewed pt chart and discussed with pt RN. Pt is currently requiring oxygen at three liters nasal canula. Pt has no home oxygen. Cardiology following. Pt on IV Lasix and Amiodarone drip. SS will continue to follow for discharge planning.
[2021-05-18 15:00] VITALS: BP 132/98
[2021-05-18 19:17] VITALS: BP 130/69
[2021-05-18 22:40] VITALS: BP 129/99
--- NOTE | 2021-05-18 23:56 | NUR ---
pt extremely agitated and SOA, refusing to leave tele monitor on and keeps removing oxygen. states "im in a really pissed off mood, stop fucking with me" IV Ativan given. Patient also refusing to use urinal or get up to restroom, states "your not going to change my bed, im just going to keep peeing myself. It will dry in 2 hours any ways" explained to patient that skin break down can occur from this. Patient again states "leave me alone, i dont care, im leaving in the morning". Also explained to patient the reason for the heart monitor and reason for being admitted to the cardiac unit. Patient still refusing states "i wish someone would just call 911 then". pt agitated and unable to reason with patient at this time. Notified Dr. Cook. Will continue to monitor. bed in low locked position, call light in reach, bed alarm set.
[2021-05-19] VITALS (7 sets, daily range): BP systolic 96–142; BP diastolic 68–87
--- NOTE | 2021-05-19 04:35 | NUR ---
Pt bed alarm set off, patient discovered on floor with abrasion to right forehead and left should. Pt extremly agitated requesting help off the floor. Pt demanding assistance to bathroom. Education provided to patient about importance of O2, heart monitor, calling for assistance- pt refusing teaching at this time states "if you just get me off the floor and i fall again on the way to the bathroom then i will learn my lesson" bed side commode provided. Pt them requesting staff to pick him up off the commode. Patient transferred self back to bed. bed alarm set. Dr. Cook notified. pt currently wearing O2 but still refusing to wear heart monitor. nursing agricultural and forestry supervisor notified. Dr. Cook requesting head CT. Will continue to monitor.
--- NOTE | 2021-05-19 05:06 | NUR ---
PT REFUSING HEAD CT AT THIS TIME. WILL ATTEMPT AGAIN BEFORE SHIFT CHANGE. NO COMPLAINTS OF PAIN. WILL CONTINUE TO MONITOR.
[2021-05-19] MEDS: FOLIC ACID 1 MG TABLET. PO SCH (09:15)
[2021-05-19] MEDS: CHOLECALCIFEROL (VITAMIN D3) 1,000 UNIT TABLET PO SCH (09:15)
[2021-05-19] MEDS: THIAMINE 100 MG TABLET. PO SCH (09:15)
[2021-05-19] MEDS: METOPROLOL SUCC 24HR ER 50 MG TAB.ER.24H. PO SCH (09:16)
[2021-05-19] MEDS: clonazePAM 0.5 MG TABLET PO SCH ×2 (09:16→22:28)
[2021-05-19] MEDS: SPIRONOLACTONE 25 MG TABLET PO SCH (09:16)
[2021-05-19] MEDS: APIXABAN 5 MG TABLET. PO SCH ×2 (09:16→22:28)
[2021-05-19] MEDS: FUROSEMIDE 40 MG/4 ML VIAL. IVP SCH (09:17)
--- NOTE | 2021-05-19 11:14 | PDOC ---
[facility] [facility] PROGRESS NOTE Date of Service DOS: DATE: 05/19/21 TIME: 11:08 Chief Complaint Chief Complaint Atrial fibrillation with rapid ventricular response Acute respiratory failure secondary to... Acute on chronic systolic and diastolic heart failure Thrombocytopenia, coagulopathy H/x recent PE/DVT H/x hypertension Alcoholism History of Present Illness History of Present Illness 05/19 Pt seen and examined PT on 3L O2 via NC Pt resting comfortably upon entering room Chart reviewed Discussed with RN, RN states pt fell last night after getting tangled in lines/wires 05/18 Pt seen and examined Chart reviewed Discussed with RN Vitals/I&O Vitals/I&O: Vital Signs Date Time Temp Pulse Resp B/P (MAP) Pulse Ox O2 Delivery O2 Flow Rate FiO2 05/19/21 09:16 112 142/82 05/19/21 08:00 Nasal Cannula 3.0 05/19/21 07:00 22 93 05/19/21 04:57 97.7 97.7 I & O 05/18/21 05/18/21 05/19/21 15:00 23:00 07:00 Intake Total 635 ml 625 ml 500 ml Output Total 1600 ml Balance 635 ml 625 ml -1100 ml Physical Exam General: Alert, Oriented X3, Cooperative, mild distress Heart: Other (IRRR; tele AFIB. Tachycardic, rate 110's) Lungs: Other (Greatly improved work of breathing compared to yesterday though still with increased chest wall movement noted) Abdomen: Soft Extremities: Other (2+ bilateral LE edema, improving) Assessment and Plan Assessmemt and Plan Assessment: Atrial fibrillation with rapid ventricular response Acute respiratory failure secondary to... Acute on chronic systolic and diastolic heart failure Thrombocytopenia, coagulopathy H/x recent PE/DVT H/x hypertension Alcoholism Plan: Head CT due to fall last night Continue Metoprolol for rate control Continue Lasix Continue home Spironolactone Continue IV Amiodarone Continue home Eliquis Cardiology consulted, recommendations appreciated Continue scheduled Clonazepam and PRN Ativan Home meds Deep venous thrombosis prophylaxis JOHN hose and SCDs. Full code Long-term prognosis is guarded Comment Review of Relevant I have reviewed the following items shayna (where applicable) has been applied. Justifications for Admission Other Justification JINNY MENDENHALL III DO May 19, 2021 11:14
--- NOTE | 2021-05-19 12:27 | PDOC ---
PROGRESS NOTES Date of Service: DATE: 05/19/21 TIME: 12:26 Subjective Subjective Dyspnea improved, denied any chest pain, on 3 L O2 per nasal cannula Objective Objective Vital Signs Date Time Temp Pulse Resp B/P (MAP) Pulse Ox O2 Delivery O2 Flow Rate FiO2 05/19/21 11:00 97.5 104 26 112/81 (91) 96 Nasal Cannula 3.0 97.5 Intake and Output 05/19/21 07:00 Intake Total 1760 ml Output Total 1600 ml Balance 160 ml Intake Oral 1760 ml Output Urine Total 1600 ml # Voids 1 Physical Exam Abdomen: Soft Heart: Other (IRRR; tele AFIB. Tachycardic, rate 110's) Extremities: Other (2+ bilateral LE edema, improving) General: Alert, Oriented X3, Cooperative, mild distress HEENT: Atraumatic Lungs: Other (diminished ) MUSCULOSKELETAL: Osteoarthritic changes both hands Neuro: Normal speech, Sensation intact Psych/Mental Status: Mood NL Assessment Assessment 1. Acute respiratory failure secondary to CHF 2. Acute on chronic systolic CHF: improving with diuresis 3. NICM; LVEF reportedly 20-25%. Recent cath reportedly without significant obstructive disease. Follows with [facility]. LifeVest arranged, but patient has been noncompliant 4. New onset AFIB: rate controlled 5. Hypertension; controlled 6. PE/DVT; recent diagnosis. On Eliquis 7. H/o heavy ETOH use; experienced withdrawal during recent hospitalization at [facility] 8. Thrombocytopenia, coagulopathy; 9. 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 Medications Current Medications Apixaban (Eliquis) 5 mg BID PO ; Start 05/20/21 at 09:00 Vitals/I & O Vital Sign - Last 24 Hours 05/18/21 05/18/21 05/18/21 05/18/21 15:00 19:17 20:00 22:40 Temp 91.9 91.9 97.5 91.9 91.9 97.5 Pulse 76 72 75 Resp B/P (MAP) 132/98 (109) 130/69 (89) 129/99 (109) Pulse Ox 98 96 97 O2 Delivery Nasal Cannula Nasal Cannula Nasal Cannula Nasal Cannula O2 Flow Rate 3.0 3.0 3.0 3.0 05/19/21 05/19/21 05/19/21 05/19/21 02:24 04:57 07:00 08:00 Temp 97.6 97.7 97.6 97.7 Pulse 75 76 112 Resp B/P (MAP) 114/78 (90) 115/87 (96) 142/82 (102) Pulse Ox 93 94 93 O2 Delivery Nasal Cannula Nasal Cannula Nasal Cannula Nasal Cannula O2 Flow Rate 3.0 3.0 3.0 3.0 05/19/21 05/19/21 09:16 11:00 Temp 97.5 97.5 Pulse 112 104 Resp B/P (MAP) 142/82 112/81 (91) Pulse Ox 96 O2 Delivery Nasal Cannula O2 Flow Rate 3.0 Intake and Output 05/18/21 05/18/21 05/19/21 15:00 23:00 07:00 Intake Total 635 ml 625 ml 500 ml Output Total 1600 ml Balance 635 ml 625 ml -1100 ml TALYA CHASE MD May 19, 2021 12:27
--- NOTE | 2021-05-19 17:00 | RAD ---
CT HEAD/BRAIN WO dated 05/19/2021 6:32 AM. Comparison: None. Clinical Indication: Reason: fall / Spl. Instructions: / History: Technical factors: Contiguous 5 mm axial images of the head were obtained from the skullbase to the vertex. No contrast was administered. Findings: Ventricles and sulci are within normal limits for age. No evidence of ventricular shift or mass effec t. Brain parenchyma is of normal attenuation. There is no evidence of hemorrhage or extra-axial colle ction. Visualized paranasal sinuses and mastoid air cells are clear. No acute osseous abnormality. Impression: No evidence of acute intracranial abnormality. Electronically signed by: Lazaro Jensen Jr., MD (05/19/2021 4:57 PM) [id number]
[2021-05-20 03:30] VITALS: BP 118/75
[2021-05-20] MEDS ORDERED: ACETAMINOPHEN 325 MG TABLET. PO PRN (04:45)
[2021-05-20] MEDS ORDERED: ACETAMINOPHEN 650 MG/20.3 ML SOLUTION. PEG PRN (04:45)
[2021-05-20 07:00] VITALS: BP 118/76
[2021-05-20] MEDS: THIAMINE 100 MG TABLET. PO SCH (10:26)
[2021-05-20] MEDS: APIXABAN 5 MG TABLET. PO SCH ×2 (10:26→20:46)
[2021-05-20] MEDS: CHOLECALCIFEROL (VITAMIN D3) 1,000 UNIT TABLET PO SCH (10:26)
[2021-05-20] MEDS: clonazePAM 0.5 MG TABLET PO SCH ×2 (10:27→20:46)
[2021-05-20] MEDS: SPIRONOLACTONE 25 MG TABLET PO SCH (10:27)
[2021-05-20] MEDS: METOPROLOL SUCC 24HR ER 50 MG TAB.ER.24H. PO SCH (10:27)
[2021-05-20] MEDS: FOLIC ACID 1 MG TABLET. PO SCH (10:27)
[2021-05-20] MEDS: FUROSEMIDE 40 MG/4 ML VIAL. IVP SCH (10:30)
[2021-05-20 11:00] VITALS: BP 112/68
--- NOTE | 2021-05-20 11:36 | PDOC ---
[employer] PROGRESS NOTE Date of Service DOS: DATE: 05/20/21 TIME: 11:31 Chief Complaint Chief Complaint Atrial fibrillation with rapid ventricular response Acute respiratory failure secondary to... Acute on chronic systolic and diastolic heart failure Thrombocytopenia, coagulopathy H/x recent PE/DVT H/x hypertension Alcoholism History of Present Illness History of Present Illness 05/20 Pt seen and examined Pt on 3L o2 via NC Pt resting comfortably Chart reviewed Discusses with RN 05/19 Pt seen and examined PT on 3L O2 via NC Pt resting comfortably upon entering room Chart reviewed Discussed with RN, RN states pt fell last night after getting tangled in lines/wires 05/18 Pt seen and examined Chart reviewed Discussed with RN Vitals/I&O Vitals/I&O: Vital Signs Date Time Temp Pulse Resp B/P (MAP) Pulse Ox O2 Delivery O2 Flow Rate FiO2 05/20/21 10:27 115 126/85 05/20/21 08:00 Nasal Cannula 3.0 05/20/21 07:00 97.7 24 95 97.7 I & O 05/19/21 05/19/21 05/20/21 15:00 23:00 07:00 Intake Total 400 ml 430 ml Output Total 3165 ml 2150 ml 1450 ml Balance -2765 ml -1720 ml -1450 ml Physical Exam General: Alert, Oriented X3, Cooperative, No acute distress (sleeping) Heart: Other (IRRR; tele AFIB. Tachycardic) Lungs: Other (Dminished, Increased chest wall movement) Abdomen: Soft Extremities: Other (2+ pitting edema) Assessment and Plan Assessmemt and Plan Assessment: Atrial fibrillation with rapid ventricular response Acute respiratory failure secondary to... Acute on chronic systolic and diastolic heart failure Thrombocytopenia, coagulopathy H/x recent PE/DVT H/x hypertension Alcoholism Plan: Continue Metoprolol for rate control Continue Lasix Continue home Spironolactone Continue IV Amiodarone Continue home Eliquis Cardiology consulted, recommendations appreciated Continue scheduled Clonazepam and PRN Ativan Head CT reviewed and negative post fall Home meds Deep venous thrombosis prophylaxis JOHN hose and SCDs. Full code Long-term prognosis is guarded Comment Review of Relevant I have reviewed the following items shayna (where applicable) has been applied. Medications: Current Medications Medications (Trade) Dose Ordered Sig/Lisa Route PRN Reason Start Time Stop Time Status Last Admin Dose Admin Apixaban (Eliquis) 5 mg BID PO 05/20/21 09:00 05/20/21 10:26 Acetaminophen (Tylenol) 650 mg PRN Q6HRS PRN PO MILD PAIN / TEMP > 100.3'F 05/20/21 04:45 05/20/21 04:45 Justifications for Admission Other Justification JINNY MENDENHALL III DO May 20, 2021 11:36
--- NOTE | 2021-05-20 14:26 | PDOC ---
PROGRESS NOTES Date of Service: DATE: 05/20/21 TIME: 14:25 Subjective Subjective Dyspnea and edema improved, denied any chest pain Objective Objective Vital Signs Date Time Temp Pulse Resp B/P (MAP) Pulse Ox O2 Delivery O2 Flow Rate FiO2 05/20/21 11:00 97.5 96 24 112/68 (83) 95 Nasal Cannula 3.0 97.5 Intake and Output 05/20/21 07:00 Intake Total 830 ml Output Total 6765 ml Balance -5935 ml Intake Oral 830 ml Output Urine Total 6765 ml # Voids 2 Physical Exam Abdomen: Soft Heart: Other (IRRR; tele AFIB. Tachycardic) Extremities: Other (2+ pitting edema) General: Alert, Oriented X3, Cooperative, No acute distress (sleeping) HEENT: Atraumatic Lungs: Other (diminished ) MUSCULOSKELETAL: Osteoarthritic changes both hands Neuro: Normal speech, Sensation intact Psych/Mental Status: Mood NL Assessment Assessment 1. Acute respiratory failure secondary to CHF 2. Acute on chronic systolic CHF: Improved with diuresis 3. NICM; LVEF reportedly 20-25%. Recent cath reportedly without significant obstructive disease. Follows with [facility]. LifeVest arranged, but patient has been noncompliant 4. New onset AFIB: rate better controlled but still slightly elevated 5. Hypertension; controlled 6. PE/DVT; recent diagnosis. On Eliquis 7. H/o heavy ETOH use; experienced withdrawal during recent hospitalization at [facility] 8. Thrombocytopenia, coagulopathy; 9. AUD Recommendations Blood pressure borderline low and hence cannot increase metoprolol dose Start digoxin for better rate control Continue lasix therapy Pt has AUD and significantly noncompliant and would not be a good candidate for [facility] amiodarone therapy Continue Toprol for rate control Continue Eliquis for stroke prophylaxis, treatment of DVT/PE Supportive care Plan Plan of Care Problems Medical Problems: (1) Atrial fibrillation with RVR Status: Acute (2) Congestive heart failure Status: Acute Comment Review of Relevant I have reviewed the following items shayna (where applicable) has been applied. Medications Current Medications Acetaminophen (Tylenol) 650 mg PRN Q6HRS PRN PEG MILD PAIN / TEMP > 100.3'F; Start 05/20/21 at 04:45; Status Cancel Acetaminophen (Tylenol) 650 mg PRN Q6HRS PRN PO MILD PAIN / TEMP > 100.3'F Last administered on 05/20/21at 04:45; Start 05/20/21 at 04:45 Apixaban (Eliquis) 5 mg BID PO Last administered on 05/20/21at 10:26; Start 05/20/21 at 09:00 Vitals/I & O Vital Sign - Last 24 Hours 05/19/21 05/19/21 05/19/21 05/19/21 14:43 19:25 20:00 23:40 Temp 97.3 97.9 97.9 97.3 97.9 97.9 Pulse 110 98 97 Resp 22 20 B/P (MAP) 110/75 (87) 109/68 (82) 96/70 (79) Pulse Ox 96 96 94 O2 Delivery Nasal Cannula Nasal Cannula Nasal Cannula Nasal Cannula O2 Flow Rate 3.0 3.0 3.0 3.0 05/20/21 05/20/21 05/20/21 05/20/21 03:30 07:00 08:00 10:27 Temp 98.0 97.7 98.0 97.7 Pulse 112 114 115 Resp 20 24 B/P (MAP) 118/75 (89) 118/76 (90) 126/85 Pulse Ox 95 95 O2 Delivery Nasal Cannula Nasal Cannula Nasal Cannula O2 Flow Rate 3.0 3.0 3.0 05/20/21 11:00 Temp 97.5 97.5 Pulse 96 Resp 24 B/P (MAP) 112/68 (83) Pulse Ox 95 O2 Delivery Nasal Cannula O2 Flow Rate 3.0 Intake and Output 05/19/21 05/19/21 05/20/21 15:00 23:00 07:00 Intake Total 400 ml 430 ml Output Total 3165 ml 2150 ml 1450 ml Balance -2765 ml -1720 ml -1450 ml TALYA CHASE MD May 20, 2021 14:26
[2021-05-20 15:00] VITALS: BP 102/65
[2021-05-20] MEDS: DIGOXIN 125 MCG TABLET. PO SCH (15:21)
[2021-05-20 19:30] VITALS: BP 114/74
[2021-05-20 22:50] VITALS: BP 108/68
[2021-05-21 02:55] VITALS: BP 111/73
[2021-05-21 07:33] VITALS: BP 106/79
[2021-05-21] MEDS: METOPROLOL SUCC 24HR ER 50 MG TAB.ER.24H. PO SCH (08:23)
[2021-05-21] MEDS: clonazePAM 0.5 MG TABLET PO SCH ×2 (08:24→20:29)
[2021-05-21] MEDS: SPIRONOLACTONE 25 MG TABLET PO SCH (08:24)
[2021-05-21] MEDS: DIGOXIN 125 MCG TABLET. PO SCH (08:24)
[2021-05-21] MEDS: CHOLECALCIFEROL (VITAMIN D3) 1,000 UNIT TABLET PO SCH (08:24)
[2021-05-21] MEDS: FOLIC ACID 1 MG TABLET. PO SCH (08:24)
[2021-05-21] MEDS: APIXABAN 5 MG TABLET. PO SCH ×2 (08:24→20:28)
[2021-05-21] MEDS: FUROSEMIDE 40 MG/4 ML VIAL. IVP SCH (08:27)
[2021-05-21] MEDS: THIAMINE 100 MG TABLET. PO SCH (09:36)
[2021-05-21 10:36] VITALS: BP 126/76
--- NOTE | 2021-05-21 13:22 | PDOC ---
[employer] PROGRESS NOTE Date of Service DOS: DATE: 05/21/21 TIME: 13:19 Chief Complaint Chief Complaint Atrial fibrillation with rapid ventricular response Acute respiratory failure secondary to... Acute on chronic systolic and diastolic heart failure Thrombocytopenia, coagulopathy H/x recent PE/DVT H/x hypertension Alcoholism History of Present Illness History of Present Illness 05/21 Pt seen and examined Pt states he is feeling much better and asks about going home Pt eating pretzels On 3L O2 via NC Chart reviewed Discussed with RN 05/20 Pt seen and examined Pt on 3L o2 via NC Pt resting comfortably Chart reviewed Discussed with RN 05/19 Pt seen and examined PT on 3L O2 via NC Pt resting comfortably upon entering room Chart reviewed Discussed with RN, RN states pt fell last night after getting tangled in lines/wires 05/18 Pt seen and examined Chart reviewed Discussed with RN Vitals/I&O Vitals/I&O: Vital Signs Date Time Temp Pulse Resp B/P (MAP) Pulse Ox O2 Delivery O2 Flow Rate FiO2 05/21/21 10:36 97.5 94 20 126/76 (93) 97 Nasal Cannula 3.0 97.5 I & O 05/20/21 05/20/21 05/21/21 15:00 23:00 07:00 Intake Total 180 ml 180 ml 300 ml Output Total 2850 ml 200 ml 600 ml Balance -2670 ml -20 ml -300 ml Physical Exam General: Alert, Oriented X3, Cooperative, No acute distress Heart: Other (irregular, tachycardic) Lungs: Other (Diminished, work of breathing improved) Abdomen: Soft Extremities: Other (Improving edema) Assessment and Plan Assessmemt and Plan Assessment: Atrial fibrillation with rapid ventricular response Acute respiratory failure secondary to... Acute on chronic systolic and diastolic heart failure Thrombocytopenia, coagulopathy H/x recent PE/DVT H/x hypertension Alcoholism Plan: Continue Metoprolol for rate control Added Digoxin per cardiology due to continued tachycardia and borderline low blood pressure preventing increased dose of metoprolol Continue Lasix Continue home Spironolactone Continue IV Amiodarone Continue home Tessquis Appreciate cardiology input Continue scheduled Clonazepam and PRN Ativan Head CT reviewed and negative post fall Home meds Deep venous thrombosis prophylaxis JOHN thorne and SCDs. Full code Long-term prognosis is guarded but seems to be improving a lot in the last 48 hours Discharge disposition pending Comment Review of Relevant I have reviewed the following items shayna (where applicable) has been applied. Medications: Current Medications Medications (Trade) Dose Ordered Sig/Lisa Route PRN Reason Start Time Stop Time Status Last Admin Dose Admin Digoxin (Lanoxin) 125 mcg DAILY PO 05/20/21 14:30 05/21/21 08:24 Justifications for Admission Other Justification JINNY MENDENHALL III DO May 21, 2021 13:22
--- NOTE | 2021-05-21 13:27 | PDOC ---
PROGRESS NOTES Date of Service: DATE: 05/21/21 TIME: 13:25 Subjective Subjective Feeling better with improvement in dyspnea, denied any chest pain Objective Objective Vital Signs Date Time Temp Pulse Resp B/P (MAP) Pulse Ox O2 Delivery O2 Flow Rate FiO2 05/21/21 10:36 97.5 94 20 126/76 (93) 97 Nasal Cannula 3.0 97.5 Intake and Output 05/21/21 07:00 Intake Total 660 ml Output Total 3650 ml Balance -2990 ml Intake Oral 660 ml Output Urine Total 3650 ml Physical Exam Abdomen: Soft Heart: Other (irregular, tachycardic) Extremities: Other (Improving edema) General: Alert, Oriented X3, Cooperative, No acute distress (sleeping) HEENT: Atraumatic Lungs: Other (diminished ) MUSCULOSKELETAL: Osteoarthritic changes both hands Neuro: Normal speech, Sensation intact Psych/Mental Status: Mood NL Assessment Assessment 1. Acute respiratory failure secondary to CHF 2. Acute on chronic systolic CHF: Improved with diuresis 3. NICM; LVEF reportedly 20-25%. Recent cath reportedly without significant obstructive disease. Follows with [facility]. LifeVest arranged, but patient has been noncompliant 4. New onset AFIB: rate better controlled but still slightly elevated 5. Hypertension; controlled 6. PE/DVT; recent diagnosis. On Eliquis 7. H/o heavy ETOH use; experienced withdrawal during recent hospitalization at [facility] 8. Thrombocytopenia, coagulopathy; 9. AUD Recommendations Heart rate better controlled after initiating digoxin. Continue metoprolol. Continue diuresis with Lasix. Pt has AUD and significantly noncompliant and would not be a good candidate for fpc amiodarone therapy Continue Toprol for rate control Continue Eliquis for stroke prophylaxis, treatment of DVT/PE Supportive care Plan Plan of Care Problems Medical Problems: (1) Atrial fibrillation with RVR Status: Acute (2) Congestive heart failure Status: Acute Comment Review of Relevant I have reviewed the following items shayna (where applicable) has been applied. Medications Current Medications Ceftriaxone Sodium (Rocephin) 1 gm Q24H IVP ; Start 05/21/21 at 13:00 Digoxin (Lanoxin) 125 mcg DAILY PO Last administered on 05/21/21at 08:24; Start 05/20/21 at 14:30 Vitals/I & O Vital Sign - Last 24 Hours 05/20/21 05/20/21 05/20/21/25/21 15:00 15:21 19:30 19:50 Temp 98.1 97.5 98.1 97.5 Pulse 109 93 116 Resp 22 B/P (MAP) 102/65 (77) 106/67 114/74 (87) Pulse Ox 97 99 O2 Delivery Nasal Cannula Nasal Cannula Nasal Cannula O2 Flow Rate 3.0 3.0 3.0 05/20/21 05/21/21 05/21/21 05/21/21 22:50 02:55 07:33 08:00 Temp 97.7 97.8 98.2 97.7 97.8 98.2 Pulse 106 107 112 Resp B/P (MAP) 108/68 (81) 111/73 (86) 106/79 (88) Pulse Ox 98 97 97 O2 Delivery Nasal Cannula Nasal Cannula Nasal Cannula Nasal Cannula O2 Flow Rate 3.0 3.0 3.0 3.0 05/21/21 05/21/21 05/21/21 08:23 08:24 10:36 Temp 97.5 97.5 Pulse 112 112 94 Resp 20 B/P (MAP) 106/79 106/79 126/76 (93) Pulse Ox 97 O2 Delivery Nasal Cannula O2 Flow Rate 3.0 Intake and Output 05/20/21 05/20/21 05/21/21 15:00 23:00 07:00 Intake Total 180 ml 180 ml 300 ml Output Total 2850 ml 200 ml 600 ml Balance -2670 ml -20 ml -300 ml TALYA CHASE MD May 21, 2021 13:26
[2021-05-21] MEDS: cefTRIAXone IV Push 1 GM VIAL. IVP SCH (13:53)
[2021-05-21 14:28] VITALS: BP 110/69
[2021-05-21 19:20] VITALS: BP 119/80
[2021-05-21 23:10] VITALS: BP 110/75
[2021-05-22 03:00] VITALS: BP 105/72
[2021-05-22 07:00] VITALS: BP 104/63
[2021-05-22] MEDS: DIGOXIN 125 MCG TABLET. PO SCH ×2 (08:19→12:14)
[2021-05-22] MEDS: SPIRONOLACTONE 25 MG TABLET PO SCH ×2 (08:19→12:15)
[2021-05-22] MEDS: clonazePAM 0.5 MG TABLET PO SCH ×2 (08:20→20:43)
[2021-05-22] MEDS: METOPROLOL SUCC 24HR ER 50 MG TAB.ER.24H. PO SCH ×2 (08:20→12:14)
[2021-05-22] MEDS: CHOLECALCIFEROL (VITAMIN D3) 1,000 UNIT TABLET PO SCH (08:21)
[2021-05-22] MEDS: THIAMINE 100 MG TABLET. PO SCH (08:21)
[2021-05-22] MEDS: FOLIC ACID 1 MG TABLET. PO SCH (08:21)
[2021-05-22] MEDS: APIXABAN 5 MG TABLET. PO SCH ×2 (08:22→20:43)
[2021-05-22] MEDS: FUROSEMIDE 40 MG/4 ML VIAL. IVP SCH (08:22)
--- NOTE | 2021-05-22 11:49 | PDOC ---
ASHLEIGH PRINGLE ONSHORE DIVER 05/22/21 1149: CARDIO Progress Notes Date and Time Date of Service 05/22/21 Time of Evaluation 1145 Subjective Subjective: No Chest Pain, No shortness of breath, No Palpitations, Other (LE edema better, wanting to go home) Vitals Vitals Vital Signs Date Time Temp Pulse Resp B/P (MAP) Pulse Ox O2 Delivery O2 Flow Rate FiO2 05/22/21 08:20 Nasal Cannula 3.0 05/22/21 07:00 97.7 107 20 104/63 (77) 97 97.7 Weight Weight [ ] Input and Output Intake and Output Intake and Output 05/22/21 07:00 Intake Total 1560 ml Output Total 3750 ml Balance -2190 ml Intake Oral 1560 ml Output Urine Total 3750 ml Physical Exam HEENT: Neck Supple W Full Motion Chest: Symmetric LUNGS: Other (diminished) Heart: irregularly irregular (AFIB, rate 115) Abdomen: Soft N/T Extremities: Other (2+ bilateral LE pitting edema) Neurology: alert, oriented, follow commands Assessment Assessment 1. Acute respiratory failure secondary to CHF 2. Acute on chronic systolic CHF: Improved with diuresis. Good UOP 3. NICM; Echo 05/02/21 with LVEF 15-20%. LHC 05/05/21 at [facility] with mild, non- obstructive CAD. Follows with [facility]. LifeVest arranged, but patient has been noncompliant 4. New onset AFIB: rate better controlled but still slightly elevated intermittently 5. Hypertension; controlled 6. PE/DVT; recent diagnosis. On Eliquis 7. H/o heavy ETOH use; experienced withdrawal during recent hospitalization at [facility] 8. Thrombocytopenia, coagulopathy Recommendations Continue Toprol, digoxin for rate control. Will increase Toprol for better rate control Continue diuresis with Lasix. Discussed 2Gm Na diet, 2000cc FR, and daily weight monitoring Pt has AUD and significantly noncompliant and would not be a good candidate for retirement amiodarone therapy Continue Eliquis for stroke prophylaxis, treatment of DVT/PE Recheck INR Supportive care Outpatient echo in 3 months to reassess LV systolic function, need for AICD for primary prevention fo SCD. Justicifation of Admission Dx: Justifications for Admission: Justification of Admission Dx: Yes TALYA CHASE MD 05/22/21 1548: CARDIO Progress Notes Assessment Assessment Patient seen and examined. Agree with CHECK AIRMAN's assessment and plan. Acute on chronic systolic heart failure better compensated. Atrial fibrillation rate better controlled. Patient is anticoagulated with Eliquis for history of PE/DVT. Plan 2D echo in 3 months to evaluate the need for AICD implantation. Patient wants to go home. Change Lasix to 40 mg p.o. daily upon discharge ASHLEIGH PRINGLE APRN May 22, 2021 11:49 TALYA CHASE MD May 22, 2021 15:48
[2021-05-22] MEDS: cefTRIAXone IV Push 1 GM VIAL. IVP SCH (12:15)
[2021-05-22 12:36] VITALS: BP 114/81
--- NOTE | 2021-05-22 13:42 | PDOC ---
[employer] PROGRESS NOTE Date of Service DOS: DATE: 05/22/21 TIME: 13:42 Chief Complaint Chief Complaint Atrial fibrillation with rapid ventricular response Acute respiratory failure secondary to... Acute on chronic systolic and diastolic heart failure Thrombocytopenia, coagulopathy H/x recent PE/DVT H/x hypertension Alcoholism History of Present Illness History of Present Illness 05/22/2021 No acute events overnight. Patient seen and examined bedside. Saturating 97% on 3 L nasal cannula. Heart rate between the 90 to 70s. Patient does not normally wear oxygen at home. Pending 6-minute walk test. We will continue to give IV diuresis. Patient still has some pedal edema. Patient's chart, labs, images were reviewed and discussed with RN 05/21 Pt seen and examined Pt states he is feeling much better and asks about going home Pt eating pretzels On 3L O2 via NC Chart reviewed Discussed with RN 05/20 Pt seen and examined Pt on 3L o2 via NC Pt resting comfortably Chart reviewed Discussed with RN 05/19 Pt seen and examined PT on 3L O2 via NC Pt resting comfortably upon entering room Chart reviewed Discussed with RN, RN states pt fell last night after getting tangled in lines/wires 05/18 Pt seen and examined Chart reviewed Discussed with RN Vitals/I&O Vitals/I&O: Vital Signs Date Time Temp Pulse Resp B/P (MAP) Pulse Ox O2 Delivery O2 Flow Rate FiO2 05/22/21 12:36 114/81 (92) 05/22/21 12:14 122 05/22/21 08:20 Nasal Cannula 3.0 05/22/21 07:00 97.7 20 97 97.7 I & O 05/21/21 05/21/21 05/22/21 15:00 23:00 07:00 Intake Total 480 ml 180 ml 900 ml Output Total 3250 ml 100 ml 400 ml Balance -2770 ml 80 ml 500 ml Physical Exam General: Alert, Oriented X3, Cooperative, No acute distress Heart: Other (irregular, tachycardic) Lungs: Other (Diminished, work of breathing improved) Abdomen: Soft Extremities: Other (Improving edema) Assessment and Plan Assessmemt and Plan Problems Medical Problems: (1) Atrial fibrillation with RVR Status: Acute (2) Congestive heart failure Status: Acute Comment Review of Relevant I have reviewed the following items shayna (where applicable) has been applied. Justifications for Admission Other Justification VICKI STANFORD MD May 22, 2021 13:42
[2021-05-22] MEDS ORDERED: METOPROLOL SUCC 24HR ER 25 MG TAB.ER.24H. PO ONE (14:00)
--- NOTE | 2021-05-22 14:31 | NUR ---
SCRIPT FOR HOME O2 IS IN CLEAR PLASTIC SLEEVE IN FRONT OF CHART FOR TOMORROW, PENDING RESULT OF 6 MINUTE WALK WITH RT
--- NOTE | 2021-05-22 14:50 | NUR ---
SS following up with discharge planning. SS reviewed pt chart and discussed with pt RN. Pt is currently requiring oxygen at three liters nasal canula. Pt has no home oxygen. Pt on IV Rocephin and IV Lasix. PT/OT ordered. Six minute walk ordered. SS will continue to follow for discharge planning.
[2021-05-22 15:00] VITALS: BP 115/77
[2021-05-22 16:15] LABS: PROTHROMBIN TIME PATIENT 16.2 SEC (11.7-14.0)
[2021-05-22 19:15] VITALS: BP 111/78
[2021-05-22] MEDS: LACTOBACILLUS RHAMNOSUS GG 1 CAPSULE. PO SCH (20:43)
[2021-05-22 23:05] VITALS: BP 105/70
[2021-05-23 03:10] VITALS: BP 111/74
[2021-05-23 07:00] VITALS: BP 120/84
[2021-05-23] MEDS: clonazePAM 0.5 MG TABLET PO SCH (08:15)
[2021-05-23] MEDS: APIXABAN 5 MG TABLET. PO SCH (08:15)
[2021-05-23] MEDS: FOLIC ACID 1 MG TABLET. PO SCH (08:15)
[2021-05-23] MEDS: CHOLECALCIFEROL (VITAMIN D3) 1,000 UNIT TABLET PO SCH (08:15)
[2021-05-23] MEDS: LACTOBACILLUS RHAMNOSUS GG 1 CAPSULE. PO SCH (08:15)
[2021-05-23] MEDS: THIAMINE 100 MG TABLET. PO SCH (08:15)
[2021-05-23] MEDS: SPIRONOLACTONE 25 MG TABLET PO SCH (08:16)
[2021-05-23] MEDS: DIGOXIN 125 MCG TABLET. PO SCH (08:16)
[2021-05-23] MEDS: FUROSEMIDE 40 MG/4 ML VIAL. IVP SCH (08:17)
[2021-05-23] MEDS ORDERED: LISINOPRIL 5 MG TABLET. PO SCH (09:00)
[2021-05-23] MEDS ORDERED: METOPROLOL SUCC 24HR ER 50 MG TAB.ER.24H. PO SCH (09:00)
[2021-05-23 09:56] LABS: CALCIUM 8.7 mg/dL (8.5-10.1); CREATININE 0.8 mg/dL (0.7-1.3); GFR 96.7; MAGNESIUM 2.1 mg/dL (1.8-2.4); POTASSIUM 3.3 mmol/L (3.5-5.1)
[2021-05-23 10:00] VITALS: BP 128/77
[2021-05-23] MEDS ORDERED: POTASSIUM CHLORIDE 20 MEQ TABLET.ER. PO ONE (11:00)
--- NOTE | 2021-05-23 11:00 | PDOC ---
ASHLEIGH PRINGLE EMISSION SPECIALIST 05/23/21 1100: CARDIO Progress Notes Date and Time Date of Service 05/23/21 Time of Evaluation 1100 Subjective Subjective: No Chest Pain, No shortness of breath, No Palpitations Vitals Vitals Vital Signs Date Time Temp Pulse Resp B/P (MAP) Pulse Ox O2 Delivery O2 Flow Rate FiO2 05/23/21 08:17 93 120/84 05/23/21 08:00 Room Air 05/23/21 07:00 97.8 20 97 3.0 97.8 Weight Weight [ ] Input and Output Intake and Output Intake and Output 05/23/21 07:00 Intake Total 1240 ml Output Total 1425 ml Balance -185 ml Intake Oral 1240 ml Output Urine Total 1425 ml # Voids 6 Laboratory Labs Laboratory Tests Test 05/22/21 15:40 05/23/21 08:50 Prothrombin Time 16.2 SEC (11.7-14.0) Prothromb Time International Ratio 1.3 (0.8-1.1) Sodium Level 140 mmol/L (136-145) Potassium Level 3.3 mmol/L (3.5-5.1) Chloride Level 99 mmol/L (98-107) Carbon Dioxide Level 32 mmol/L (21-32) Anion Gap 9 (6-14) Blood Urea Nitrogen 10 mg/dL (8-26) Creatinine 0.8 mg/dL (0.7-1.3) Estimated GFR (Cockcroft-Gault) 96.7 Glucose Level 145 mg/dL (70-99) Calcium Level 8.7 mg/dL (8.5-10.1) Magnesium Level 2.1 mg/dL (1.8-2.4) XG-Aaq-G-Type Natriuretic Peptide 3202 pg/mL (0-124) Physical Exam HEENT: Neck Supple W Full Motion Chest: Symmetric LUNGS: Other (diminished) Heart: irregularly irregular (AFIB, rate controlled overall) Abdomen: Soft N/T Extremities: Other (1+ bilateral LE pitting edema) Neurology: alert, oriented, follow commands Assessment Assessment 1. Acute respiratory failure secondary to CHF 2. Acute on chronic systolic CHF: Improved with diuresis. Good UOP 3. NICM; Echo 05/02/21 with LVEF 15-20%. LHC 05/05/21 at [facility] with mild, non- obstructive CAD. Follows with [facility]. LifeVest arranged, but patient has been noncompliant 4. New onset AFIB: rate better controlled 5. Hypertension; controlled 6. PE/DVT; recent diagnosis. On Eliquis 7. H/o heavy ETOH use; experienced withdrawal during recent hospitalization at [facility] 8. Thrombocytopenia, coagulopathy 9. Hypokalemia Recommendations Continue Toprol, digoxin for rate control. Lasix therapy. Discussed 2Gm Na diet, 2000cc FR, and daily weight monitoring Pt has AUD and significantly noncompliant and would not be a good candidate for buttermaker helper amiodarone therapy Continue Eliquis for stroke prophylaxis, treatment of DVT/PE Supportive care Outpatient echo in 3 months to reassess LV systolic function, need for AICD for primary prevention fo SCD. Patient will follow with with Dr. Schreiber through the [place] Justicifation of Admission Dx: Justifications for Admission: Justification of Admission Dx: Yes TALYA CHASE MD 05/23/21 1529: CARDIO Progress Notes Assessment Assessment Patient seen and examined. OLERICULTURIST's assessment and plan. Acute on chronic systolic heart failure better compensated Atrial fibrillation rate better controlled Patient anticoagulated with Eliquis for history of DVT/PE Plan to repeat 2D echo in 3 months Importance of abstinence from alcohol use reemphasized ASHLEIGH PRINGLE APRN May 23, 2021 11:00 TALYA CHASE MD May 23, 2021 15:29
--- NOTE | 2021-05-23 12:19 | NUR ---
SS following up with discharge planning. SS reviewed pt chart and discussed with pt RN. Pt is currently requiring oxygen at three liters nasal canula. Pt has no home oxygen. Pt on IV Rocephin and IV Lasix. PT/OT ordered. OT reported no needs. Six minute walk ordered. Currently awaiting results of six minute walk at this time. SS will continue to follow for discharge planning.
[2021-05-23] MEDS ORDERED: FURO-68 PO (12:36)
[2021-05-23] MEDS ORDERED: DIGO125T3 PO (12:36)
[2021-05-23] MEDS ORDERED: METO50TA4 PO (12:36)
[2021-05-23] MEDS ORDERED: LISI5TAB15 PO (12:36)
--- NOTE | 2021-05-23 12:38 | DISCH ---
DISCHARGE INSTRUCTIONS Condition on Discharge Condition on Discharge: Stable Activity After Discharge Activity Instructions for Disc: Activity as tolerated Exercise Instruction after Dis: Walk 15 min, 3 x per day Driving Instructions after Dis: Do not drive today Weight Bearing Status after Di: Full weight bearing Follow-Up Follow up with: PCP within 2 weeks of discharge Follow Up With: Cardiology as needed or scheduled VICKI STANFORD MD May 23, 2021 12:37
[2021-05-23] MEDS: cefTRIAXone IV Push 1 GM VIAL. IVP SCH (13:00)
--- NOTE | 2021-05-23 14:06 | NUR ---
Pt discharged home with self care. Discharge instructions and prescriptions discussed. Pt verbalized understanding. IV removed. Pt packed his belongings himself. Assisted to wheelchair and was secured in car with brother.
--- NOTE | 2021-05-26 18:46 | PDOC3 ---
[facility]-Discharge Summary Date of Admission: Date of Admission: May 17, 2021 Date of Discharge: Date of Discharge: May 23, 2021 Discharge Diagnosis: Discharge Diagnosis: Atrial fibrillation with rapid ventricular response Acute respiratory failure secondary to... Acute on chronic systolic and diastolic heart failure Thrombocytopenia, coagulopathy H/x recent PE/DVT H/x hypertension Alcoholism Consults: Consults: per cardiology: Assessment 1. Acute respiratory failure secondary to CHF 2. Acute on chronic systolic CHF: Improved with diuresis. Good UOP 3. NICM; Echo 05/02/21 with LVEF 15-20%. LHC 05/05/21 at [facility] with mild, non- obstructive CAD. Follows with [facility]. LifeVest arranged, but patient has been noncompliant 4. New onset AFIB: rate better controlled 5. Hypertension; controlled 6. PE/DVT; recent diagnosis. On Eliquis 7. H/o heavy ETOH use; experienced withdrawal during recent hospitalization at [facility] 8. Thrombocytopenia, coagulopathy 9. Hypokalemia Recommendations Continue Toprol, digoxin for rate control. Lasix therapy. 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 Patient will follow with with Dr. Schreiber through the [place] Hospital Course: Hospital Course: By day of discharge, pt was clinically stable and ready for discharge. Rest of hospital course was uneventful 05/22/2021 No acute events overnight. Patient seen and examined bedside. Saturating 97% on 3 L nasal cannula. Heart rate between the 90 to 70s. Patient does not normally wear oxygen at home. Pending 6-minute walk test. We will continue to give IV diuresis. Patient still has some pedal edema. Patient's chart, labs, images were reviewed and discussed with RN 05/21 Pt seen and examined Pt states he is feeling much better and asks about going home Pt eating pretzels On 3L O2 via NC Chart reviewed Discussed with RN 05/20 Pt seen and examined Pt on 3L o2 via NC Pt resting comfortably Chart reviewed Discussed with RN 05/19 Pt seen and examined PT on 3L O2 via NC Pt resting comfortably upon entering room Chart reviewed Discussed with RN, RN states pt fell last night after getting tangled in lines/wires 05/18 Pt seen and examined Chart reviewed Discussed with RN 65-year-old male who presented to the ER with shortness of breath. He has also had a rapid heart rate that has been occurring for 4 days. While in the ER, he is noted to be in AFib with rapid ventricular response. It should be noted that the [facility] diagnosis of [facility] and was started on anticoagulation with Eliquis. He apparently did have a cardiac cath while there. Apparently, it was clear according to the patient. His ejection fraction was noted to be 25%. Apparently, he was supposed to be wearing a LifeVest, but did not like wearing it, so he did not wear it, sits it next to himself. He used to be a heavy drinker. He states he quit drinking 3 weeks ago. He also quit smoking. I discussed the case with the ER physician. We have admitted the patient. We are consulting Cardiology. Disposition: Disposition/Orders: D/C to Home Activity: Activity: Resume previous activity Diet: Diet: Cardiac Medications: Home Meds Active Scripts Furosemide (LASIX) 40 Mg Tablet, 1 TAB PO DAILY for heart failure for 30 Days, #30 TAB 0 Refills Prov:VICKI STANFORD MD 05/23/21 Lisinopril (LISINOPRIL) 5 Mg Tablet, 2.5 MG PO DAILY for blood pressure for 30 Days, #15 TAB 2 Refills Prov:VICKI STANFORD MD 05/23/21 Metoprolol Succinate (Toprol XL) 50 Mg Tab.er.24h, 75 MG PO DAILY for heart rate for 30 Days, #45 TAB.SR 2 Refills Prov:VICKI STANFORD MD 05/23/21 Digoxin (DIGOXIN) 125 Mcg Tablet, 125 MCG PO DAILY for heart rate for 30 Days, #30 TAB 2 Refills Prov:VICKI STANFORD MD 05/23/21 Reported Medications Folic Acid (FOLIC ACID) 0.8 Mg Tablet, 0.8 MG PO DAILY for SUPPLEMENT, TAB 05/17/21 Apixaban (ELIQUIS) 5 Mg Tablet, 10 MG PO BID for , TAB 05/16/21 Clonazepam (CLONAZEPAM) 1 Mg Tablet, 1 MG PO BID for FOR ANXIETY, TAB 05/16/21 Cholecalciferol (Vitamin D3) (Vitamin D3 ) 25 Mcg Tablet, 25 MCG PO DAILY for SUPPLEMENT, TAB 1,000 UNITS = 25 MCG 05/16/21 Thiamine Hcl (VITAMIN B-1) 100 Mg Tablet, 1 TAB PO DAILY for for 30 Days, #30 TAB 0 Refills 05/16/21 Spironolactone (SPIRONOLACTONE) 25 Mg Tablet, 1 TAB PO DAILY for , #90 TAB 1 Refill 05/16/21 Discontinued Reported Medications Bisoprolol Fumarate (BISOPROLOL FUMARATE) 5 Mg Tablet, 0.5 TAB PO DAILY for , #30 TAB 5 Refills 05/16/21 Scheduled Apixaban (Eliquis), 10 MG PO BID, (Reported) Cholecalciferol (Vitamin D3) (Vitamin D3 ), 25 MCG PO DAILY, (Reported) Clonazepam (Clonazepam), 1 MG PO BID, (Reported) Digoxin (Digoxin), 125 MCG PO DAILY Folic Acid (Folic Acid), 0.8 MG PO DAILY, (Reported) Furosemide (Lasix), 1 TAB PO DAILY Lisinopril (Lisinopril), 2.5 MG PO DAILY Metoprolol Succinate (Toprol XL), 75 MG PO DAILY Spironolactone (Spironolactone), 1 TAB PO DAILY, (Reported) Thiamine Hcl (Vitamin B-1), 1 TAB PO DAILY, (Reported) Discontinued Medications Bisoprolol Fumarate (Bisoprolol Fumarate), 0.5 TAB PO DAILY, (Reported) Total Time: Total Time: Total time spent was 32 minutes in preparing scripts and discharge planning wit h SW and RN Patient seen and examined on day of Discharge. Justicifation of Admission Dx: Justifications for Admission: Justification of Admission Dx: Yes VICKI STANFORD MD May 26, 2021 18:46
== END 2021-05-23 14:03 | disposition home or self-care (01) | DRG 291 ==
LOC: ER 17:00 → 6 SOUTH 20:00
PROVIDERS: ADMIT Internal Medicine; ATTEND Internal Medicine
DX: I11.0 Hypertensive heart disease with heart failure (principal); I50.43 Acute on chronic combined systolic (congestive) and diastolic (congestive) heart failure; J96.00 Acute respiratory failure, unspecified whether with hypoxia or hypercapnia; D68.9 Coagulation defect, unspecified; I47.2 Ventricular tachycardia; I42.8 Other cardiomyopathies; I48.91 Unspecified atrial fibrillation; D69.6 Thrombocytopenia, unspecified; E87.6 Hypokalemia; F10.20 Alcohol dependence, uncomplicated; I25.10 Atherosclerotic heart disease of native coronary artery without angina pectoris; Z79.01 Long term (current) use of anticoagulants; Z82.49 Family history of ischemic heart disease and other diseases of the circulatory system; Z86.711 Personal history of pulmonary embolism; Z86.718 Personal history of other venous thrombosis and embolism; Z87.891 Personal history of nicotine dependence; Z91.19 Patient's noncompliance with other medical treatment and regimen; M19.90 Unspecified osteoarthritis, unspecified site
CPT/HCPCS: 36415; 70450; 71045; 80048; 80053; 80061; 81001; 82553; 83735; 83880; 84484; 85025; 85610; 93005; 94618; 96365; 96366; 96368; 96375; J0282; J0696; J1160; J1940; J2060; J3490; J7060; 97530-GO; 99285-25; G0378